=== PATIENT | female | born 1970 | race Caucasian/White ===

== ENCOUNTER 2022-03-13 18:53 | Emergency (ER) | payer OTHER ==
[~2022-03-13] VITALS: Ht 167.6 cm; Wt 74.8 kg
[2022-03-13 18:56] VITALS: BP 127/72
[2022-03-13] MEDS ORDERED: 0.9%NACL 1000ML 1,000 ML IV ONE (21:00)
[2022-03-13] MEDS ORDERED: SOLU-MEDROL 125MG VIAL IVP ONE (21:00)
[2022-03-13] MEDS ORDERED: FAMOTIDINE 20MG VIAL IV ONE (21:00)
[2022-03-13] MEDS ORDERED: DiphenhydrAMINE HCL 50 MG/ML VIAL IV ONE (21:00)
[2022-03-13] MEDS ORDERED: DIPH25 PO (22:31)
[2022-03-13] MEDS ORDERED: CEPH500B PO (22:31)
== END 2022-03-13 22:46 | disposition home or self-care (01) ==
LOC: EDH 18:53
DX: T63.481A Toxic effect of venom of other arthropod, accidental (unintentional), initial encounter (principal); Z88.6 Allergy status to analgesic agent; Z79.52 Long term (current) use of systemic steroids; Y92.89 Other specified places as the place of occurrence of the external cause
CPT/HCPCS: 99284; 96374; 96375; 96361; J1200; J3490; J7030; J2930